=== PATIENT | male | born 1955 | race American Indian/Alaskan Native ===

== ENCOUNTER 2018-08-30 15:21 | Emergency (ER) | payer MEDICARE, MEDICAID ==
--- NOTE | 2018-08-30 16:23 | EDM.PDOC ---
ED HPI GENERAL MEDICAL PROBLEM - General Chief Complaint: Wound Recheck Stated Complaint: LEFT FOOT PAIN Time Seen by Provider: 08/30/18 16:10 Source of Information: Reports: Patient History Limitations: Reports: Other (no old records, poor historian) - History of Present Illness INITIAL COMMENTS - FREE TEXT/NARRATIVE: 63 yo male here due to increased pain associated with a diabetic foot ulcer. He was last seen by his home health aid this morning who changed his dressing, she was not concerned by what she saw. He is followed for this ulcer by a furnace room supervisor in [place]. There has not been a fever or increased drainage. Says he' s never had pain meds for this wound. Does not know when he is to see the furnace room supervisor next. Does not normally get his care here, but had a ride in this direction today so chose to come here. Onset: Gradual Onset Date: 08/29/18 Duration: Hour(s): Location: Reports: Lower Extremity, Left Quality: Reports: Other (ache + some shooting pains) Severity: Moderate Improves with: Reports: Other (elevation, changing foot position.) Worsens with: Reports: Other (attempted weight bearing, is supposed to be non- weight bearing with crutches. ) Context: Reports: Other (see HPI) Associated Symptoms: Reports: No Other Symptoms Treatments DETAIL TECHNICIAN: Reports: Other (see below) (none) Left Foot Pain Score (Numeric/FACES): 8 - Related Data Allergies Allergy/AdvReac Type Severity Reaction Status Date / Time No Known Allergies Allergy Verified 08/30/18 16:00 Home Meds: Home Meds Acetaminophen/HYDROcodone [[place] 325-5 MG] 1 - 2 tab PO Q6H PRN #20 tab [Rx] Insulin Aspart [NovoLOG] 18 units SQ ASDIRECTED 08/30/18 [History] Past Medical History HEENT History: Reports: Impaired Vision Gastrointestinal History: Reports: Chronic Diarrhea Musculoskeletal History: Reports: Fibromyalgia Psychiatric History: Reports: Depression Endocrine/Metabolic History: Reports: Diabetes, Type II - Infectious Disease History Infectious Disease History: Reports: Chicken Pox, Measles, Mumps - Past Surgical History Head Surgeries/Procedures: Reports: None HEENT Surgical History: Reports: Tonsillectomy GI Surgical History: Reports: None Endocrine Surgical History: Reports: None Musculoskeletal Surgical History: Reports: Other (See Below) Other Musculoskeletal Surgeries/Procedures:: left foot, right leg Dermatological Surgical History: Reports: None Social & Family History - Tobacco Use Smoking Status *Q: Current Every Day Smoker Years of Tobacco use: 50 Packs/Tins Daily: 0.5 Used Tobacco, but Quit: No Second Hand Smoke Exposure: Yes - Caffeine Use Caffeine Use: Reports: Coffee, Tea - Recreational Drug Use Recreational Drug Use: Yes Drug Use in Last 12 Months: Yes Recreational Drug Type: Reports: Marijuana/Hashish Recreational Drug Use Frequency: Daily ED ROS GENERAL - Review of Systems Review Of Systems: See Below Constitutional: Reports: No Symptoms Respiratory: Reports: No Symptoms Cardiovascular: Reports: No Symptoms GI/Abdominal: Reports: No Symptoms : Reports: No Symptoms Skin: Reports: Other (L heel diabetic foot ulcer, had a heel spur removed from that location and the wound was left open to heal secondarily. ) Neurological: Reports: No Symptoms ED EXAM, SKIN/RASH Exam: See Below Exam Limited By: No Limitations General Appearance: Alert, WD/WN, No Apparent Distress Respiratory/Chest: No Respiratory Distress Cardiovascular: Regular Rate, Rhythm Neurological: Alert, Oriented, CN II-XII Intact, Normal Cognition Psychiatric: Normal Affect, Normal Mood Skin: Warm, Dry, Normal Color, No Rash, Other (L heel 3.25 cm in diameter foot ulcer, no redness or purulent drainage. ) Location, Skin: Lower Extremity, Left Characteristics: Other (ulcer) Associated features: Tenderness. No: Warmth, Swelling, Induration, Lymphangitis , Inflammation Course - Vital Signs Last Recorded V/S: Last Vital Signs Temp 35.6 C 08/30/18 16:01 Pulse 95 08/30/18 16:01 Resp 17 08/30/18 16:01 BP 124/78 08/30/18 16:01 Pulse Ox 96 08/30/18 16:01 Departure - Departure Time of Disposition: 16:30 Disposition: Home, Self-Care 01 Condition: Good Clinical Impression: Chronic foot ulcer Qualifiers: Laterality: left Non-pressure ulcer stage: with fat layer exposed Qualified Code(s): L97.522 - Non-pressure chronic ulcer of other part of left foot with fat layer exposed - Discharge Information *PRESCRIPTION DRUG MONITORING PROGRAM REVIEWED*: No *COPY OF PRESCRIPTION DRUG MONITORING REPORT IN PATIENT JOSE: No Prescriptions: Acetaminophen/HYDROcodone [[place] 325-5 MG] 1 - 2 tab PO Q6H PRN #20 tab PRN Reason: Pain Referrals: Jo Serrano I, SHELVING SUPERVISOR [Primary Care Provider] - Additional Instructions: Call soon to scheduled an appt for recheck by your furnace room supervisor or family doctor. We can't give you more pain meds for this after today so you will need to follow up with one of them for this issue after today. Continue present cares.
== END 2018-08-30 17:02 | disposition home or self-care (01) ==
LOC: JP.ED 15:21
DX: E11.621 Type 2 diabetes mellitus with foot ulcer (principal); L97.522 Non-pressure chronic ulcer of other part of left foot with fat layer exposed; F17.210 Nicotine dependence, cigarettes, uncomplicated; Z79.4 Long term (current) use of insulin
CPT/HCPCS: 99283

== ENCOUNTER 2020-06-29 00:02 | Inpatient (IN) | payer MEDICARE, MEDICAID ==
[2020-06-29] MEDS ORDERED: Ondansetron 4 MG/2 ML SDV IVPUSH ONE (00:43)
[2020-06-29] MEDS ORDERED: Sodium Chloride 0.9% 1,000 ML IV SCH (00:45)
--- NOTE | 2020-06-29 00:46 | EDM.PDOC ---
ED HPI GENERAL MEDICAL PROBLEM - General Chief Complaint: Gastrointestinal Problem Stated Complaint: DEHYDRATED Time Seen by Provider: 06/29/20 00:30 Source of Information: Reports: Patient History Limitations: Reports: No Limitations - History of Present Illness INITIAL COMMENTS - FREE TEXT/NARRATIVE: 65-year-old male who has had nausea and vomiting for the past 48 hours, feels like he is dehydrated because every time he tries to eat or drink anything he starts to gag and has emesis. No fevers or chills, no diarrhea, he does have some mild lower abdominal pain but no distention. He claims this is happened to him one other time in the past and when he was hydrated he felt better. Onset: Gradual Duration: Day(s): (Symptoms for 2 days) Location: Reports: Abdomen Worsens with: Reports: Eating (Worsens when he tries to eat or drink anything) Associated Symptoms: Reports: Malaise abd pain Pain Score (Numeric/FACES): 7 - Related Data Allergies Allergy/AdvReac Type Severity Reaction Status Date / Time No Known Allergies Allergy Verified 06/29/20 00:24 Home Meds: Home Meds Omeprazole 20 mg PO DAILY 06/29/20 [History] Pregabalin [Lyrica] 75 mg PO BID 06/29/20 [History] Past Medical History HEENT History: Reports: Impaired Vision Gastrointestinal History: Reports: Chronic Diarrhea Musculoskeletal History: Reports: Amputation, Fibromyalgia Psychiatric History: Reports: Depression Endocrine/Metabolic History: Reports: Diabetes, Type II Dermatologic History: Reports: Cellulitis - Infectious Disease History Infectious Disease History: Reports: Chicken Pox, Measles, Mumps - Past Surgical History Head Surgeries/Procedures: Reports: None HEENT Surgical History: Reports: Tonsillectomy GI Surgical History: Reports: None Endocrine Surgical History: Reports: None Musculoskeletal Surgical History: Reports: Amputation, Other (See Below) Other Musculoskeletal Surgeries/Procedures:: left foot, right leg. Bilateral below the knee amputation Dermatological Surgical History: Reports: None Social & Family History - Tobacco Use Tobacco Use Status *Q: Current Every Day Tobacco User Years of Tobacco use: 30 Packs/Tins Daily: 0.5 - Caffeine Use Caffeine Use: Reports: Coffee - Recreational Drug Use Recreational Drug Use: No ED ROS GENERAL - Review of Systems Review Of Systems: See Below Constitutional: Reports: Malaise. Denies: Fever, Chills HEENT: Denies: Throat Pain Respiratory: Denies: Shortness of Breath, Cough Cardiovascular: Denies: Chest Pain, Palpitations GI/Abdominal: Reports: Abdominal Pain, Nausea, Vomiting. Denies: Constipation, Diarrhea : Reports: No Symptoms Neurological: Denies: Headache Psychiatric: Reports: No Symptoms ED EXAM, GI/ABD - Physical Exam Exam: See Below Exam Limited By: No Limitations General Appearance: Alert, No Apparent Distress Eyes: Bilateral: Normal Appearance (No jaundice) Head: Atraumatic Respiratory/Chest: No Respiratory Distress, Lungs Clear Cardiovascular: Regular Rate, Rhythm GI/Abdominal Exam: Normal Bowel Sounds, Soft, Tender (Reacts with some tenderness vaguely to the lower abdomen but no focal rebound or guarding). 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) Neurological: Alert, Oriented Psychiatric: Normal Affect, Normal Mood Skin Exam: Warm, Dry Course - Vital Signs Last Recorded V/S: Last Vital Signs Temp 99.6 F 06/29/20 05:26 Pulse 86 06/29/20 05:26 Resp 16 06/29/20 05:26 BP 132/74 06/29/20 05:26 Pulse Ox 97 06/29/20 05:26 - Orders/Labs/Meds Orders: Medication Orders Dextrose/Lactated Ringer's (Dextrose 5%-Lactated Ringers) 1,000 mls @ 125 mls/hr IV ASDIRECTED [facility] Last Admin: 06/29/20 05:06 Dose: 125 mls/hr Documented by: FARHAN Lorazepam (Ativan) 0.5 mg IVPUSH Q3H PRN PRN Reason: Nausea Ondansetron HCl (Zofran) 4 mg IVPUSH Q4H PRN PRN Reason: Nausea/Vomiting Labs: Laboratory Tests 06/29/20 06/29/20 06/29/20 Range/Units 00:52 00:52 03:02 WBC 9.0 (4.5-11.0) K/uL RBC 4.82 (4.30-5.90) M/uL Hgb 14.4 (12.0-15.0) g/dL Hct 43.4 (40.0-54.0) % MCV 90 (80-98) fL MCH 30 (27-31) pg MCHC 33 (32-36) % Plt Count 295 (150-400) K/uL Neut % (Auto) 73 H (36-66) % Lymph % (Auto) 21 L (24-44) % [place] % (Auto) 6 (2-6) % Eos % (Auto) 0 L (2-4) % Baso % (Auto) 0 (0-1) % Sodium 140 (140-148) mmol/L Potassium 3.6 (3.6-5.2) mmol/L Chloride 102 (100-108) mmol/L Carbon Dioxide 23 (21-32) mmol/L Anion Gap 15.3 H (5.0-14.0) mmol/L BUN 31 H (7-18) mg/dL Creatinine 1.4 H (0.8-1.3) mg/dL Est Cr Clr Drug Dosing 48.94 mL/min Estimated GFR (MDRD) 51 L (>60) Glucose 109 H (74-106) mg/dL Calcium 9.8 (8.5-10.1) mg/dL Total Bilirubin 0.7 (0.2-1.0) mg/dL AST 35 (15-37) U/L ALT 19 (12-78) U/L Alkaline Phosphatase 72 (46-116) U/L Total Protein 8.5 H (6.4-8.2) g/dL Albumin 4.2 (3.4-5.0) g/dL Globulin 4.3 H (2.3-3.5) g/dL Albumin/Globulin Ratio 1.0 L (1.2-2.2) Lipase 200 (73-393) U/L Urine Color Yellow (YELLOW) Urine Appearance Slightly cloudy A (CLEAR) Urine pH 5.5 (5.0-8.0) Ur Specific [place] >= 1.030 (1.008-1.030) Urine Protein >=300 H (NEGATIVE) mg/dL Urine Glucose (UA) Negative (NEGATIVE) mg/dL Urine Ketones 40 H (NEGATIVE) mg/dL Urine Occult Blood Moderate H (NEGATIVE) Urine Nitrite Negative (NEGATIVE) Urine Bilirubin Small H (NEGATIVE) Urine Urobilinogen 0.2 (0.2-1.0) EU/dL Ur Leukocyte Esterase Negative (NEGATIVE) Urine RBC 0-5 (0-5) Urine WBC 0-5 (0-5) Ur Epithelial Cells Rare Amorphous Sediment Few Urine Bacteria Few Urine Mucus Moderate Urine Opiates Screen (NEGATIVE) Ur Oxycodone Screen (NEGATIVE) Urine Methadone Screen (NEGATIVE) Ur Propoxyphene Screen (NEGATIVE) Ur Barbiturates Screen (NEGATIVE) Ur Tricyclics Screen (NEGATIVE) Ur Phencyclidine Scrn (NEGATIVE) Ur Amphetamine Screen (NEGATIVE) U Methamphetamines Scrn (NEGATIVE) Urine MDMA Screen (NEGATIVE) U Benzodiazepines Scrn (NEGATIVE) U Cocaine Metab Screen (NEGATIVE) U Marijuana (THC) Screen (NEGATIVE) 06/29/20 Range/Units 03:02 WBC (4.5-11.0) K/uL RBC (4.30-5.90) M/uL Hgb (12.0-15.0) g/dL Hct (40.0-54.0) % MCV (80-98) fL MCH (27-31) pg MCHC (32-36) % Plt Count (150-400) K/uL Neut % (Auto) (36-66) % Lymph % (Auto) (24-44) % [place] % (Auto) (2-6) % Eos % (Auto) (2-4) % Baso % (Auto) (0-1) % Sodium (140-148) mmol/L Potassium (3.6-5.2) mmol/L Chloride (100-108) mmol/L Carbon Dioxide (21-32) mmol/L Anion Gap (5.0-14.0) mmol/L BUN (7-18) mg/dL Creatinine (0.8-1.3) mg/dL Est Cr Clr Drug Dosing mL/min Estimated GFR (MDRD) (>60) Glucose (74-106) mg/dL Calcium (8.5-10.1) mg/dL Total Bilirubin (0.2-1.0) mg/dL AST (15-37) U/L ALT (12-78) U/L Alkaline Phosphatase (46-116) U/L Total Protein (6.4-8.2) g/dL Albumin (3.4-5.0) g/dL Globulin (2.3-3.5) g/dL Albumin/Globulin Ratio (1.2-2.2) Lipase (73-393) U/L Urine Color (YELLOW) Urine Appearance (CLEAR) Urine pH (5.0-8.0) Ur Specific [place] (1.008-1.030) Urine Protein (NEGATIVE) mg/dL Urine Glucose (UA) (NEGATIVE) mg/dL Urine Ketones (NEGATIVE) mg/dL Urine Occult Blood (NEGATIVE) Urine Nitrite (NEGATIVE) Urine Bilirubin (NEGATIVE) Urine Urobilinogen (0.2-1.0) EU/dL Ur Leukocyte Esterase (NEGATIVE) Urine RBC (0-5) Urine WBC (0-5) Ur Epithelial Cells Amorphous Sediment Urine Bacteria Urine Mucus Urine Opiates Screen Negative (NEGATIVE) Ur Oxycodone Screen Negative (NEGATIVE) Urine Methadone Screen Negative (NEGATIVE) Ur Propoxyphene Screen Negative (NEGATIVE) Ur Barbiturates Screen Negative (NEGATIVE) Ur Tricyclics Screen Negative (NEGATIVE) Ur Phencyclidine Scrn Negative (NEGATIVE) Ur Amphetamine Screen Negative (NEGATIVE) U Methamphetamines Scrn Negative (NEGATIVE) Urine MDMA Screen Negative (NEGATIVE) U Benzodiazepines Scrn Negative (NEGATIVE) U Cocaine Metab Screen Negative (NEGATIVE) U Marijuana (THC) Screen Presumptive positive H (NEGATIVE) Meds: Medications Generic Name Dose Route Start Last Admin Trade Name Freq PRN Reason Stop Dose Admin Dextrose/Lactated Ringer's 1,000 mls @ 125 mls/hr 06/29/20 04:30 06/29/20 05:06 Dextrose 5%-Lactated Ringers IV 125 mls/hr ASDIRECTED NATI Administration Lorazepam 0.5 mg 06/29/20 04:26 Ativan IVPUSH Q3H PRN Nausea Ondansetron HCl 4 mg 06/29/20 04:25 Zofran IVPUSH Q4H PRN Nausea/Vomiting Discontinued Medications Generic Name Dose Route Start Last Admin Trade Name Freq PRN Reason Stop Dose Admin Sodium Chloride 1,000 mls @ 1,000 mls/hr 06/29/20 00:45 06/29/20 00:55 Normal Saline IV 1,000 mls/hr ASDIRECTED NATI Administration Lorazepam 0.5 mg 06/29/20 02:57 06/29/20 03:46 Ativan IVPUSH 06/29/20 02:58 0.5 mg ONETIME ONE Administration Ondansetron HCl 4 mg 06/29/20 00:43 06/29/20 01:00 Zofran IVPUSH 06/29/20 00:44 4 mg ONETIME ONE Administration - Re-Assessments/Exams Free Text/Narrative Re-Assessment/Exam: 06/29/20 00:46 An IV was started and the patient was given 1000 cc of normal saline. CBC CMP and lipase were obtained and he was given 4 mg of IV Zofran. After the fluids and labs were drawn we will try to see if he can take something oral to rule out esophageal obstruction. 06/29/20 01:20 CBC was normal, lipase normal, CMP was abnormal only with evidence of dehy dration with a mildly elevated BUN and creatinine and decreased GFR. Patient felt better after the 4 mg of Zofran. Will be given a full liter of fluid, and discharged with some extra doses of Zofran and he can recheck in 24 to 48 hours if not improving. 06/29/20 02:52 IV was discontinued, as patient was being prepared to be discharged but started having emesis again after drinking water. CT the abdomen and pelvis without contrast was ordered. 06/29/20 04:08 IMPRESSION: No obstructive uropathy or discrete urolithiasis. Borderline bladder or wall thickness which could be related to under distention and mild chronic outlet obstruction. Correlate with urinalysis to exclude mild cystitis. No appendicitis, diverticulitis or bowel obstruction. Nonspecific gas and fluid-filled small bowel segments. Correlate clinically for mild enteritis. Slight gallbladder wall thickening is difficult to exclude. Correlate clinically and, if indicated, with sonography. A 1.7 cm indeterminate inferior left adrenal nodule versus a periadrenal lesion. Follow-up with adrenal MRI. A mildly enlarged prostate. A 5 mm pulmonary nodule. If there are high risk factors, or otherwise clinically indicated, follow-up can be obtained. Above findings were discussed with the patient. Urine drug screen was negative except for marijuana. IV Ativan sent the patient down but he still had persistent nausea and vomiting if trying to drink or eat. I am going to ask Dr. Serrano to admit the patient for an EGD in a.m. 06/29/20 04:16 Dr. Serrano accepted admission, EGD at 8 AM. Departure - Departure Time of Disposition: 04:32 Disposition: Admitted As Inpatient 66 Clinical Impression: Dehydration Nausea and vomiting Qualifiers: Vomiting type: unspecified Vomiting Intractability: non-intractable Qualified Code(s): R11.2 - Nausea with vomiting, unspecified - Discharge Information Sepsis Event Note (ED) - Evaluation Sepsis Screening Result: No Definite Risk - Focused Exam Vital Signs: Vital Signs Temp Pulse Resp BP Pulse Ox 06/29/20 03:42 97.1 F 90 15 156/82 H 98 06/29/20 00:19 95.8 F L 94 16 130/78 99 06/29/20 00:17 95.8 F L 94 16 130/78 99
[2020-06-29] MEDS ORDERED: LORazepam 2 MG/ML SDV IVPUSH ONE (02:57)
--- NOTE | 2020-06-29 04:00 | CRLCT ---
Indication: Persistent nausea and vomiting Technique: Volumetric multidetector CT images of the abdomen and pelvis were without the administration of intravenous contrast. Comparison: None available. Findings: There is bibasilar atelectasis versus scar. There is demonstration of a pulmonary nodule in the right lung base measuring 4.5 millimeters. The liver is normal in attenuation without intrahepatic biliary ductal dilatation. The gallbladder is unremarkable without evidence of radiopaque calculus. There is no significant common biliary ductal dilatation or abrupt cut off. The spleen is normal in attenuation and size. The stomach and duodenum are grossly unremarkable. The pancreas is normal in attenuation without significant atrophy. There is demonstration of a mass within the left adrenal gland measuring a 1.5 x 1.4 centimeters on series 2, image 38. There is no evidence of radiopaque calculus or hydronephrosis. There is mild to moderate stool seen throughout the colon. There is colonic diverticulosis without evidence of diverticulitis. There are mildly dilated loops of central small bowel which can be seen in the setting of enteritis. The appendix is not well-visualized There is no significant mesenteric, retroperitoneal, or pelvic sidewall lymph nodes. The aorta is nonaneurysmal. There is no significant atherosclerotic disease appreciated. The solid pelvic viscera are grossly unremarkable. There is no free fluid or free air. The lumbar vertebral body heights are grossly maintained with [id number] degenerative disc disease. There is moderate facet arthrosis. Impression: No evidence of radiopaque calculus or obstructive uropathy. Somewhat non specifically dilated loops of central small bowel which could represent mild enteritis changes. Indeterminate 1.7 centimeter left adrenal nodule. 4.5 millimeter pulmonary nodule within the right lung base. Consider follow-up with dedicated CT if there are associated risk factors for pulmonary malignancy. Otherwise, no acute intra-abdominal abnormality is appreciated. Please note that all CT scans at this facility use dose modulation, iterative reconstruction, and/or weight-based dosing when appropriate to reduce radiation dose to as low as reasonably achievable. Dictated by Juan José Power MD @ Jun 30 2020 2:25PM Signed by Dr. Juan José Power @ Jun 30 2020 2:36PM
[2020-06-29] MEDS ORDERED: LORazepam 2 MG/ML SDV IVPUSH PRN ×2 (04:26→08:56)
[2020-06-29] MEDS: Dextrose 5%-Lactated Ringers 1,000 ML IV SCH ×2 (05:06→12:10)
[2020-06-29] MEDS ORDERED: Scopolamine 1.5 MG Transdermal Patch TOP ONE (06:45)
[2020-06-29] MEDS ORDERED: fentaNYL 100 MCG/2 ML SDV ONE (07:34)
[2020-06-29] MEDS ORDERED: Midazolam 1 MG/ML 2 ML SDV ONE (07:34)
[2020-06-29] MEDS ORDERED: Propofol 200 MG/20 ML SDV ONE (07:34)
[2020-06-29] MEDS ORDERED: Pantoprazole 40 MG Vial IVPUSH ONE (08:14)
[2020-06-29] MEDS ORDERED: Bisacodyl 5 MG Tab PO ONE ×2 (09:00→20:00)
[2020-06-29] MEDS: Pregabalin 75 MG Cap PO SCH ×3 (10:02→21:26)
[2020-06-29] MEDS: Enoxaparin 40 MG/0.4 ML Syringe SUBCUT SCH (10:02)
[2020-06-29] MEDS: Ondansetron 4 MG/2 ML SDV IVPUSH PRN (14:46)
[2020-06-29] MEDS ORDERED: Polyethylene Glycol 3350 Powder 238 GM Bot PO ONE (17:00)
[2020-06-29] MEDS: Pantoprazole 40 MG Vial IV SCH ×2 (19:52→21:27)
--- NOTE | 2020-06-30 07:32 | PN ---
DATE OF SERVICE: 06/30/2020 SUBJECTIVE: Spencer had an upper endoscopy yesterday, which showed erosive gastritis. Potassium this morning is 2.9. He has been sleeping most of the time. Oral intake was 500. Urine output is 1700. He has no questions or concerns. REVIEW OF SYSTEMS: Remainder of review of systems is negative for any pertinent positives and negatives. OBJECTIVE: GENERAL: Spencer Justin is a 65-year-old male. VITAL SIGNS: TPR is 98.6, 69, 16, and blood pressure 115/68. HEENT: Negative. NECK: Supple. HEART: Regular rate and rhythm. LUNGS: Clear. ABDOMEN: Not assessed. EXTREMITIES: Bilateral below-knee amputation. ASSESSMENT: 1. Low potassium 2.9. 2. Upper endoscopy 06/29/2020, with biopsies. Erosive gastritis. 3. Dehydration. 4. Nausea. 5. Anorexia. PLAN: 1. Admit the patient to inpatient for erosive gastritis, dehydration, nausea, and anorexia. 2. K-Phos 60 millimole IV now. 3. Referral to discharge planning to evaluate home needs. 4. We will encourage him oral intake. 5. We will evaluate p.r.n. or in the a.m. Nae Piedra PA-C /[id number]
[2020-06-30] MEDS: Ondansetron 4 MG/2 ML SDV IVPUSH PRN ×3 (07:33→18:19)
[2020-06-30] MEDS: Enoxaparin 40 MG/0.4 ML Syringe SUBCUT SCH (09:14)
[2020-06-30] MEDS: Pantoprazole 40 MG Vial IV SCH ×2 (09:14→20:20)
[2020-06-30] MEDS: Pregabalin 75 MG Cap PO SCH ×2 (09:14→20:20)
[2020-06-30] MEDS: Potassium Phos in 0.9 % NaCl 15 MMOL in Premix Bag 1 BAG IV SCH ×8 (09:26→15:52)
--- NOTE | 2020-06-30 15:06 | PN ---
DATE OF SERVICE: 06/29/2020 This is a 65-year-old male admitted with persistent nausea and vomiting, more or less involving dry heaves. He has had this in the past when he has been dehydrated. He does have some history of reflux with gastritis and he is on normally 20 mg of omeprazole a day. He was felt to be almost ready for discharge when he continued to have nausea and dry heaving in the emergency room and was admitted earlier this morning for an upper endoscopy which showed quite an extensive diffuse erosive gastritis. No active bleeding was seen but some old blood was present on the erosions. At this point, I think we need to admit the patient in as a short stay to make sure we are able to re-establish oral intake rather than sending him directly home. We will admit as a short-stay today, begin his usual diet, continue hydration. We will bump up the Protonix to 40 mg IV q.12 hours while he is here omeprazole and await the CLOtest which was obtained at the time of the upper endoscopy. As soon as he is able to reestablish oral intake, he will be ready for discharge home tomorrow. Kameron Serrano MD /[id number] MTDD
--- NOTE | 2020-06-30 15:06 | OR ---
DATE OF PROCEDURE: 06/29/2020 SURGEON: Kameron Serrano MD PREOPERATIVE DIAGNOSES: Persistent nausea and vomiting. POSTOPERATIVE DIAGNOSES: Persistent nausea and vomiting associated with diffuse erosive gastritis. OPERATIVE PROCEDURE: Upper GI endoscopy with antral biopsies for CLOtest. ANESTHESIA: IV sedation. INDICATIONS FOR PROCEDURE: This is a 65-year-old presenting to the emergency room with persistent nausea and vomiting. To evaluate the underlying process, the patient is undergoing upper endoscopy with biopsies as indicated. Potential risks including bleeding and perforation were discussed, and the patient wishes to proceed. DETAILS OF PROCEDURE: The patient was taken to the operating room, placed in a left lateral decubitus position. IV sedation was administered, after which the upper GI endoscope was passed orally through the length of the esophagus into the stomach with retroflexion view of the fundus, thereafter through the pyloric channel and junction of the 3rd and 4th portions of the duodenum. Findings included normal hypopharynx, larynx, upper esophageal sphincter, and esophageal body. At the EG junction, a small hiatal hernia was present but without significant inflammation or stricturing. Within the stomach, there was more or less a diffuse erosive gastritis. This was present most prominently within the body of the stomach but to some extent throughout the gastric lining. The patient had some coffee-grounds type old blood present, but no active bleeding seen. Pyloric channel and the visualized portions of the duodenum were unremarkable. At this point, biopsies were taken from the antrum and sent for CLOtest for H pylori. Minimal bleeding from the biopsy site was seen and the procedure was then concluded. The patient was taken to the recovery room in satisfactory condition. Kameron Serrano MD /[id number]
[2020-07-01] MEDS: Ondansetron 4 MG/2 ML SDV IVPUSH PRN (07:49)
[2020-07-01] MEDS: Potassium Phos in 0.9 % NaCl 15 MMOL in Premix Bag 1 BAG IV SCH ×6 (08:40→12:55)
[2020-07-01] MEDS ORDERED: Magnesium Oxide 400 MG Tab PO SCH (09:00)
--- NOTE | 2020-07-01 09:09 | DISCH ---
DISCHARGE DIAGNOSES: 1. Dehydration. 2. Nausea. 3. Upper endoscopy, 06/29/2020 with biopsies, erosive gastritis. Kameron Serrano MD Surgeon. 4. Hypokalemia. 5. Low magnesium. HISTORY: Spencer Justin is a 65-year-old male presenting to the emergency room with persistent nausea and vomiting. After preoperative evaluation and discussion of possible risks and possible complications, he wished to proceed with an upper GI endoscopy and biopsies. HOSPITAL COURSE: He was admitted through the emergency room on 06/29/2020, and he had an upper GI endoscopy on 06/29/2020. He was admitted for observation and changed to inpatient status for low potassium, persistent dehydration, nausea, and anorexia. K-Phos was replaced. He had an evaluation for his home needs when discharged. He has been sleeping quite a bit. Vital signs have been stable, and he was able to be discharged to home on 07/01/2019. REVIEW OF SYSTEMS: Negative for any pertinent positives or negatives. The patient would not answer any questions asked. OBJECTIVE: GENERAL: Spencer Justin is a 65-year-old male. VITAL SIGNS: Height 5 feet 8.9 inches. Weight is 128 pounds. TPR 98.3, 60, 18, and blood pressure 123/56. HEENT: Negative. HEART: Regular rate and rhythm. LUNGS: Clear. ABDOMEN: Negative. EXTREMITIES: He has bilateral below-knee amputation. DISPOSITION: Discharged to home. CONDITION: Stable. DISCHARGE MEDICATIONS: He is to resume home medications of Lyrica 75 mg p.o. b.i.d.; to start Protonix 40 mg p.o. daily. Prescription faxed to [facility] and 5 refills; and magnesium oxide 400 mg p.o. daily. FOLLOWUP: With primary care provider within a week. DIET: Usual diet as tolerated. Drink 8 to 10 glasses of water a day. ACTIVITY: As tolerated. May shower. DISCHARGE INSTRUCTIONS: Notify provider if any increased pain, nausea, or vomiting. /[id number]
[2020-07-01] MEDS: Enoxaparin 40 MG/0.4 ML Syringe SUBCUT SCH (09:33)
[2020-07-01] MEDS: Pregabalin 75 MG Cap PO SCH (09:33)
[2020-07-01] MEDS: Pantoprazole 40 MG Vial IV SCH (09:33)
== END 2020-07-01 15:30 | disposition home or self-care (01) | DRG 392 ==
LOC: JP.ED 00:02 → JP.MS 04:22 → OBSVTOIN 06-30 06:58
PROVIDERS: ADMIT Surgery; ATTEND Surgery
PROC: 0DB78ZX Excision of Stomach, Pylorus, Via Natural or Artificial Opening Endoscopic, Diagnostic (ICD-10-PCS; principal; 2020-06-29)
DX: K29.00 Acute gastritis without bleeding (principal); R11.2 Nausea with vomiting, unspecified; E86.0 Dehydration; E87.6 Hypokalemia; H54.7 Unspecified visual loss; K52.9 Noninfective gastroenteritis and colitis, unspecified; M79.7 Fibromyalgia; F32.9 Major depressive disorder, single episode, unspecified; K21.9 Gastro-esophageal reflux disease without esophagitis; E11.9 Type 2 diabetes mellitus without complications; F17.210 Nicotine dependence, cigarettes, uncomplicated; Z90.89 Acquired absence of other organs; K44.9 Diaphragmatic hernia without obstruction or gangrene; K29.60 Other gastritis without bleeding; Z79.899 Other long term (current) drug therapy; R63.0 Anorexia; Z89.512 Acquired absence of left leg below knee; Z89.511 Acquired absence of right leg below knee; Z20.822 Contact with and (suspected) exposure to COVID-19
CPT/HCPCS: 36415 ×2; 43239; 74176; 80053 ×2; 80305; 81001; 83690; 83735; 83880; 84100; 85025 ×2; 87081; 94762; 96361; 96374; 96375; 99284; 99285; A9270 ×3; C9113 ×2; J1650; J2060 ×2; J2250; J2405 ×2; J2704; J3010; J7030; J7121 ×2; U0002; 85027

== ENCOUNTER 2022-05-27 13:41 | Emergency (ER) | payer MEDICARE, MEDICAID ==
[2022-05-27] MEDS ORDERED: Sodium Chloride 0.9% 10 ML Syringe FLUSH PRN (14:26)
[2022-05-27] MEDS ORDERED: Sodium Chloride 0.9% 1,000 ML IV ONE (14:26)
[2022-05-27] MEDS ORDERED: Ondansetron 4 MG/2 ML SDV IVPUSH ONE (14:26)
[2022-05-27 15:20] LABS: ESTIMATED GFR 55 mL/min (>60)
== END 2022-05-27 17:00 | disposition home or self-care (01) ==
LOC: JP.ED 13:41
DX: E86.0 Dehydration (principal); K52.9 Noninfective gastroenteritis and colitis, unspecified; E11.69 Type 2 diabetes mellitus with other specified complication; Z72.0 Tobacco use
CPT/HCPCS: 36415; 80053; 81001; 83690; 83735; 85025; 85610; 85730; 86850; 86900; 86901; 96361; 96374; 99284; J2405; J3490; J7030

== ENCOUNTER 2023-08-30 13:57 | Inpatient (IN) | payer MEDICARE, MEDICAID ==
[2023-08-30] MEDS ORDERED: Sodium Chloride 0.9% 10 ML Syringe FLUSH PRN (14:40)
[2023-08-30] MEDS ORDERED: Iopamidol 612 MG/ML 100 ML Bottle IV PRN (14:48)
[2023-08-30 14:49] LABS: APPEARANCE,URINE CLEAR (CLEAR); BILIRUBIN,URINE SMALL (NEGATIVE); COLOR,URINE YELLOW (YELLOW); GLUCOSE,URINE NEGATIVE (NEGATIVE); KETONES,URINE NEGATIVE (NEGATIVE); LEUKOCYTE ESTERASE,URINE NEGATIVE (NEGATIVE); NITRITE,URINE NEGATIVE (NEGATIVE); OCCULT BLOOD,URINE NEGATIVE (NEGATIVE); PH,URINE 5.5 (5.0-8.0); PROTEIN,URINE >=300 mg/dL (NEGATIVE); UROBILINOGEN,URINE 0.2 EU/dL (0.2-1.0)
[2023-08-30 14:54] LABS: EPITHELIAL CELLS,URINE FEW; WBC,URINE 0-5 (0-5)
[2023-08-30 14:55] LABS: AMORPHOUS SEDIMENT,URINE FEW; BACTERIA,URINE FEW; MUCUS,URINE MODERATE
[2023-08-30 14:58] LABS: BASOPHILS PERCENT AUTO 0.1 % (0.1-1.3); HEMATOCRIT 51.5 % (38.4-49.7); HEMOGLOBIN 17.5 g/dL (12.9-16.9); IMMATURE GRAN ABSOLUTE AUTO 0.07 K/uL (0.00-0.23); IMMATURE GRAN PERCENT AUTO 0.4 % (0.0-0.7); LYMPHOCYTES ABSOLUTE AUTO 0.57 K/uL (0.8-3.3); LYMPHOCYTES PERCENT AUTO 3.3 % (11.4-47.7); MEAN CORPUSCULAR HEMOGLOBIN 29.7 pg (31.6-35.5); MEAN CORPUSCULAR VOLUME 87.4 fL (81.4-99.0); MONOCYTES ABSOLUTE AUTO 1.23 K/uL (0.20-0.90); MONOCYTES PERCENT AUTO 7.1 % (3.3-12.6); NEUTROPHILS PERCENT AUTO 89.1 % (40.0-78.1); PLATELET COUNT,PLT 285 K/uL (130-375); RED BLOOD CELL COUNT 5.89 M/uL (4.14-5.76); WHITE BLOOD CELL COUNT,WBC 17.3 K/uL (3.2-11.0)
[2023-08-30] MEDS ORDERED: Sodium Chloride 0.9% 100 ML IV SCH (15:00)
[2023-08-30] MEDS: fentaNYL 100 MCG/2 ML SDV IVPUSH ONE (15:03)
[2023-08-30] MEDS: droPERidol 5 MG/2 ML SDV IVPUSH ONE (15:04)
[2023-08-30] MEDS: Sodium Chloride 0.9% 10 ML Syringe FLUSH ONE (15:05)
[2023-08-30 15:10] LABS: BASOPHILS ABSOLUTE AUTO 0.02 K/uL (0.00-0.10)
[2023-08-30] MEDS: Lactated Ringers 1,000 ML IV SCH (15:11)
[2023-08-30 15:32] LABS: A/G RATIO 0.9 (1.2-2.2); ALKALINE PHOSPHATASE 87 U/L (46-116); BILIRUBIN TOTAL 0.6 mg/dL (0.2-1.0); CALCIUM 9.6 mg/dL (8.5-10.1); CARBON DIOXIDE,CO2 28 mmol/L (21-32); CHLORIDE,CL 98 mmol/L (100-108); CREATININE 3.1 mg/dL (0.8-1.3); ESTIMATED GFR 21 mL/min (>60); GLUCOSE RANDOM 157 mg/dL (74-106); POTASSIUM,K 3.7 mmol/L (3.6-5.2); PROTEIN TOTAL,TP 8.5 g/dL (6.4-8.2); SODIUM,NA 144 mmol/L (140-148)
[2023-08-30 15:41] LABS: ANION GAP 21.7 mmol/L (5.0-14.0); BLOOD UREA NITROGEN,BUN 110 mg/dL (7-18)
[2023-08-30 15:42] LABS: ALANINE AMINOTRANSFERASE,ALT 13 U/L (12-78); ASPARTATE AMNIOTRANSFERASE,AST 17 U/L (15-37)
[2023-08-30 17:59] LABS: CORONAVIRUS COVID-19 NAA NEGATIVE (NEGATIVE); INFLUENZA A NAA NEGATIVE (NEGATIVE); INFLUENZA B NAA NEGATIVE (NEGATIVE); RESPIRATORY SYNCYTIAL VIR NAA NEGATIVE (NEGATIVE)
[2023-08-30] MEDS: Sodium Chloride 0.9% 1,000 ML IV SCH ×2 (18:18→23:04)
[2023-08-30] MEDS: cefTRIAXone 2 GM in Sodium Chloride 0.9% 50 ML IV ONE (18:44)
[2023-08-30] MEDS ORDERED: Melatonin 3 MG Tab PO PRN (20:09)
[2023-08-30] MEDS ORDERED: Acetaminophen 325 MG Tab PO PRN (20:09)
[2023-08-30] MEDS ORDERED: Ondansetron 4 MG/2 ML SDV IV PRN (20:09)
[2023-08-30] MEDS ORDERED: Ondansetron 4 MG Tab.DIS PO PRN (20:09)
[2023-08-30] MEDS: Enoxaparin 40 MG/0.4 ML Syringe SUBCUT SCH (20:35)
[2023-08-30] MEDS: Potassium Chloride 20 MEQ Tab.ER PO ONE (20:40)
[2023-08-30] MEDS: Lactobacillus Rhamnosus GG (Probiotic) Cap PO SCH (21:01)
[2023-08-30] MEDS: Enoxaparin 30 MG/0.3 ML Syringe SUBCUT SCH (21:01)
[2023-08-31 05:45] LABS: HEMATOCRIT 42.9 % (38.4-49.7); HEMOGLOBIN 14.6 g/dL (12.9-16.9); MEAN CORPUSCULAR VOLUME 88.1 fL (81.4-99.0); RED BLOOD CELL COUNT 4.87 M/uL (4.14-5.76); WHITE BLOOD CELL COUNT,WBC 14.9 K/uL (3.2-11.0)
[2023-08-31 05:59] LABS: CALCIUM 8.5 mg/dL (8.5-10.1); CARBON DIOXIDE,CO2 27 mmol/L (21-32); CHLORIDE,CL 107 mmol/L (100-108); CREATININE 2.2 mg/dL (0.8-1.3); ESTIMATED GFR 32 mL/min (>60); GLUCOSE RANDOM 125 mg/dL (74-106); MAGNESIUM 2.9 mg/dL (1.8-2.4); SODIUM,NA 149 mmol/L (140-148)
[2023-08-31 06:02] LABS: BLOOD UREA NITROGEN,BUN 95 mg/dL (7-18)
[2023-08-31] MEDS: Pantoprazole 40 MG Tab.CR PO SCH (08:31)
[2023-08-31] MEDS: Potassium Chloride 20 MEQ Tab.ER PO ONE ×2 (08:35→19:56)
[2023-08-31] MEDS: Sennosides/Docusate Sodium 50-8.6 MG Tab PO PRN (16:18)
[2023-08-31] MEDS: Magnesium Hydroxide 400 MG/5 ML Susp 30 ML Cup PO PRN (16:18)
[2023-08-31] MEDS: cefTRIAXone 1 GM in Sodium Chloride 0.9% 50 ML IV SCH (17:44)
[2023-08-31] MEDS ORDERED: cefTRIAXone 1 GM in Sodium Chloride 0.9% 50 ML IV SCH (18:00)
[2023-09-01] MEDS: Sodium Chloride 0.9% 1,000 ML IV SCH (04:18)
[2023-09-01 05:24] LABS: HEMOGLOBIN 12.8 g/dL (12.9-16.9); MEAN CORPUSCULAR HEMOGLOBIN 29.6 pg (31.6-35.5); MEAN CORPUSCULAR HGB CONC 32.8 g/dL (31.6-35.5); MEAN CORPUSCULAR VOLUME 90.1 fL (81.4-99.0); RED BLOOD CELL COUNT 4.33 M/uL (4.14-5.76); WHITE BLOOD CELL COUNT,WBC 10.7 K/uL (3.2-11.0)
[2023-09-01 05:46] LABS: ANION GAP 14.6 mmol/L (5.0-14.0); CALCIUM 8.3 mg/dL (8.5-10.1); CREATININE 1.4 mg/dL (0.8-1.3); EST CRCL DRUG DOSING (CG) 40.29 mL/min; POTASSIUM,K 3.6 mmol/L (3.6-5.2); VANCOMYCIN RANDOM 18.2 ug/mL (0.0-50.0)
[2023-09-01] MEDS: Pantoprazole 40 MG Tab.CR PO SCH (20:23)
[2023-09-02 05:24] LABS: CALCIUM 8.2 mg/dL (8.5-10.1); CREATININE 1.1 mg/dL (0.8-1.3); EST CRCL DRUG DOSING (CG) 54.18 mL/min; POTASSIUM,K 3.3 mmol/L (3.6-5.2)
[2023-09-02 05:51] LABS: ANION GAP 9.3 mmol/L (5.0-14.0)
[2023-09-02] MEDS: Potassium Chloride 20 MEQ Tab.ER PO ONE (08:30)
== END 2023-09-03 13:16 | disposition home or self-care (01) | DRG 684 ==
LOC: JP.ED 13:57 → JP.MS 19:25
PROVIDERS: ADMIT Registered Nurse; ATTEND Hospitalist
DX: N17.9 Acute kidney failure, unspecified (principal); E11.9 Type 2 diabetes mellitus without complications; K52.9 Noninfective gastroenteritis and colitis, unspecified; H54.7 Unspecified visual loss; F32.A Depression, unspecified; F17.210 Nicotine dependence, cigarettes, uncomplicated; E86.0 Dehydration; D72.829 Elevated white blood cell count, unspecified; K59.00 Constipation, unspecified; E11.69 Type 2 diabetes mellitus with other specified complication; Z88.8 Allergy status to other drugs, medicaments and biological substances; Z79.899 Other long term (current) drug therapy; Z89.512 Acquired absence of left leg below knee; Z89.511 Acquired absence of right leg below knee; Z90.89 Acquired absence of other organs
CPT/HCPCS: 0241U; 36415; 71045; 71250; 74176; 80048; 80053; 80202; 81001; 82947; 83605; 83690; 83735; 84132; 84145; 85025; 85027; 86140; 87040; 87070; 87077; 87186; 87205; 96361; 96365; 96375; 97161; 97165; 99222; 99232; 99238; 99285; A9270-GY; J0696; J1650; J1790; J3010; J3370; J3490; J7030; J7050; J7120